=== PATIENT | male | born 1990 | race Caucasian/White ===

== ENCOUNTER 2025-04-04 12:58 | Emergency (ER) | payer OTHER, SELFPAY ==
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
[2025-04-04 12:58] VITALS: BP 136/80; PULSE 83; RESP 16; TEMP 36.4; O2SAT 100
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
--- OUTSIDE RECORDS SUMMARY | 2025-04-04 14:07 | XMS_ITS | Encounter Summary ---
Author Organization [facility] Address [address] [place] [address] Phone Care Team Providers Care Tobacco Warehouse Agent Name Role Phone Tom Clinton MD Primary Care Provider [phone] Reason for Visit * Reason Comments Medication Refill Encounter Details Date Type Department Care Team (Late st Contact Info) Description 11/27/2022 Refill [facility] - Family Medicine [facility] [address] [place] [address] Tom Clinton MD [address] [place] [address] Medication Refill Social History Tobacco Use Types Packs/Day Years Used Date Smoking Tobacco: Never Smokeless Tobacco: Current Alcohol Use Standard Drinks/Week Comments Not Currently 0 (1 standard drink = 0.6 oz pur e alcohol) PHQ-2 Answer Date Recorded PHQ-2 Score 0 07/15/2019 Education Answer Date Recorded What is the highest level of school you have completed or the highest degree you have received? Bachelor's degree (e.g., BA, AB, BS) 10/07/2020 Sexually Active Control Partners Comments Yes None Female Sex and Gender Information Value Date Recorded Sex Assigned at Not on file Legal Sex Male 11:18 PM CDT Gender Identity Not on file Sexual Orientation Not on file documented as of this encounter Miscellaneous Notes * Telephone Encounter - Alexa Wong RN - 11/27/2022 8:43 AM CDT Medication failed the protocol, provider to review and approve the medication order if appropriate.Last OV was 10/2021. Requested Prescriptions Pending Prescriptions Disp Refills olmesartan-hydrochlorothiazide (BENICAR HCT) 40-25 MG Tablet [Pharmacy Med Name: OLMESARTAN-HCTZ 40-25 MG TAB] 90 Tablet 0 Sig: TAKE 1 TABLET BY MOUTH EVERY DAY Not Delegated - Off Protocol Failed - 11/27/2022 2:53 AM Failed - This refill cannot be delegated Failed - Visit with relevant provider in past 12 months or upcoming 90 days Recent Visits No visits were found meeting these conditions. Showing recent visits within past 365 days and meeting all other requirements Future Appointments No visits were found meeting these conditions. 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
--- OUTSIDE RECORDS SUMMARY | 2025-04-04 14:07 | XMS_ITS | Encounter Summary ---
Author Organization [facility] Address [address] [place] [address] Phone Care Team Providers Care Histologist Name Role Phone Tom Clinton MD Primary Care Provider [phone] Reason for Visit * Reason Comments Medication Refill Encounter Details Date Type Department Care Team (Late st Contact Info) Description 10/21/2021 Refill [facility] - Family Medicine [facility] [address] [place] [address] Tom Clinton MD [address] [place] [address] Medication Refill Social History Tobacco Use Types [...] encounter Miscellaneous Notes * Telephone Encounter - Lucinda Gregory RN - 10/23/2021 7:37 AM CDT [employer] message read by patient: Last read by Alpesh ePrez at 7:05 AM on 10/23/2021. * Telephone Encounter - Katelyn Galicia CMA - 10/23/2021 6:56 AM CDT [employer] message was sent to patient. * Telephone Encounter - Lucinda Gregory RN - 10/22/2021 2:17 PM CDT Patient needs an appointment with PCP - last appt 10/13/20 * Telephone Encounter - Lucinda Gregory RN - 10/22/2021 2:17 PM CDT Medication failed the protocol, provider to review and approve the medication order if appropriate. Requested Prescriptions Pending Prescriptions Disp Refills amLODIPine (NORVASC) 5 MG Tablet [Pharmacy Med Name: AMLODIPINE BESYLATE 5 MG TAB] 30 Tablet 0 Sig: TAKE 1 TABLET BY MOUTH EVERY DAY Calcium-Channel Blockers Protocol Failed - 10/21/2021 11:32 AM Failed - BP on record in the past year Clinician-entered: BP Readings from Last 3 Encounters: 10/16/20 138/88 07/15/19 (!) 164/108 Patient-entered: No data recorded Failed - Visit with relevant provider in [...] documented as of this encounter Visit Diagnoses Not on filedocumented in this encounter Additional Health Concerns Assessment Noted Time PHQ-9 Depression Total Score: 0 07/15/19 12:00 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
--- OUTSIDE RECORDS SUMMARY | 2025-04-04 14:07 | XMS_ITS | Encounter Summary ---
Author Organization [facility] Address [address] [place] [address] Phone Care Team Providers Care Maintenance Shop Technician Name Role Phone Tom Clinton MD Primary Care Provider Reason for Visit * Reason Comments Medication Refill Encounter Details Date Type Department Care Team (Late st Contact Info) Description 08/29/2020 Refill [facility] - Family Medicine [facility] [address] [place] [address] Tom Clinton MD [address] [place] [address] Medication Refill Social History Tobacco Use Types Packs/Day Years Used Date Smoking Tobacco: Never Smokeless Tobacco: Current Alcohol Use Standard Drinks/Week Comments Not Currently 0 (1 standard drink = 0.6 oz pur e alcohol) PHQ-2 Answer Date Recorded PHQ-2 Score 0 07/15/2019 Sexually Active Control Partners Comments Yes None Female Sex and Gender Information Value Date Recorded Sex Assigned at Not on file Legal Sex Male 11:18 PM CDT Gender Identity Not on file Sexual Orientation Not on file documented as of this encounter Miscellaneous Notes * Telephone Encounter - Lucinda Gregory RN - 09/04/2020 8:11 AM CDT The original prescription was reordered on 09/01/2020 by Tom Clinton MD. * Telephone Encounter - Alexa Wong RN - 09/03/2020 3:03 PM CDT Duplicate * Telephone Encounter - Lucinda Gregory RN - 09/01/2020 9:16 AM CST duplicate CIATE DIRECTOR FINANCIAL AID * Telephone Encounter - Lucinda Gregory RN - 08/29/2020 3:38 PM CST [employer] message sent to patient requesting annual appointment. CIATE DIRECTOR FINANCIAL AID documented in this encounter Plan of Treatment Not on file documented as of this encounter Visit Diagnoses Not on filedocumented in this encounter Additional Health Concerns Assessment Noted Time PHQ-9 Depression Total Score: 0 07/15/19 20 12:00 PM ASSOCIATE DIRECTOR FINANCIAL AID documented as of this encounter Care Teams Maintenance Shop Technician Relationship Specialty Start Date End Date Tom Clinton MD PCP - General Family Medicine 07/15/19 12/14/24 documented as of this encounter
--- OUTSIDE RECORDS SUMMARY | 2025-04-04 14:07 | XMS_ITS | Encounter Summary ---
Author Organization [facility] Address [address] [place] [address] Phone Care Team Providers Care Lead Worker Of Housekeeping And Laundry Name Role Phone Tom Clinton MD Primary Care Provider [phone] Reason for Visit * Reason Comments Medication Refill Encounter Details Date Type Department Care Team (Late st Contact Info) Description 03/06/2023 Refill [facility] - Family Medicine [facility] [address] [place] [address] Tom Clinton MD [address] [place] [address] Medication Refill Social History Tobacco Use Types [...] Telephone Encounter - Lucinda Gregory RN - 03/06/2023 11:09 AM CDT Medication failed the protocol, provider to review and approve the medication order if appropriate. Requested Prescriptions Pending Prescriptions Disp Refills olmesartan-hydrochlorothiazide (BENICAR HCT) 40-25 MG Tablet [Pharmacy Med Name: OLMESARTAN-HCTZ 40-25 MG TAB] 30 Tablet 0 Sig: TAKE 1 TABLET BY MOUTH EVERY DAY Not Delegated - Off Protocol Failed - 03/06/2023 1:45 AM Failed - This refill cannot be [...] Total Score: 0 07/15/19 20 12:00 PM HEALTHCARE SALES REPRESENTATIVE documented as of this encounter Care Teams Lead Worker Of Housekeeping And Laundry Relationship Specialty Start Date End Date Tom Clinton MD PCP - General Family Medicine 07/15/19 12/14/24 documented as of this encounter
--- OUTSIDE RECORDS SUMMARY | 2025-04-04 14:07 | XMS_ITS | Encounter Summary ---
Author Organization [facility] Address [address] [place] [address] Phone Care Team Providers Care Bank Courier Name Role Phone Tom Clinton MD Primary Care Provider [phone] Reason for Visit * Reason Comments Medication Refill Encounter Details Date Type Department Care Team (Late st Contact Info) Description 12/19/2022 Refill [facility] - Family Medicine [facility] [address] [place] [address] Tom Clinton MD [address] [place] [address] Medication Refill Social History Tobacco Use Types [...] encounter Miscellaneous Notes * Telephone Encounter - Leatha Bhardwaj RMA - 12/23/2022 4:15 PM CDT Lvm to schedule * Telephone Encounter - Leatha Bhardwaj RMA - 12/20/2022 10:59 AM CDT No answer * Telephone Encounter - Leatha Bhardwaj RMA - 12/19/2022 2:48 PM CDT No answer * Telephone Encounter - Lucinda Gregory RN - 12/19/2022 1:50 PM CDT Needs OV with provider * Telephone Encounter - Lucinda Gregory RN - 12/19/2022 1:50 PM CDT Medication failed the protocol, provider to review and approve the medication order if appropriate. Requested Prescriptions Pending Prescriptions Disp Refills amLODIPine (NORVASC) 5 MG Tablet [Pharmacy Med Name: AMLODIPINE BESYLATE 5 MG TAB] 30 Tablet 0 Sig: TAKE 1 TABLET BY MOUTH EVERY DAY Calcium-Channel Blockers Protocol Failed - 12/19/2022 12:48 AM Failed - BP on record in the past year Clinician-entered: BP Readings from Last 3 Encounters: 11/06/21 146/88 10/16/20 138/88 07/15/19 (!) 164/108 Patient-entered: No [...] Total Score: 0 07/15/19 20 12:00 PM DIRECTOR PAYER documented as of this encounter Care Teams Bank Courier Relationship Specialty Start Date End Date Tom Clinton MD PCP - General Family Medicine 07/15/19 12/14/24 documented as of this encounter
--- OUTSIDE RECORDS SUMMARY | 2025-04-04 14:07 | XMS_ITS | Clinical Summary ---
Author Organization [facility] Physician Office [facility] [address] [place] [address] Care Team Providers Care Laboratory Equipment Cleaner Name Role Phone Darwin Jaramillo MD Primary Care Provider [phone] Allergies Active Allergy Reactions Criticality Noted Date Comments Hydrocodone Hives Medium 12/19/2023 Medications olmesartan-hydroc hlorothiazide (BENICAR HCT) 40-25 mg per tablet Take 1 tablet by mouth daily 90 tablet 1 12/19/2023 Active atorvastatin (LIPITOR) 20 mg tablet TAKE 1 TABLET BY MOUTH EVERY DAY 30 tablet 5 03/08/2024 Active amLODIPine (NORVASC) 5 mg tabletIndications :Benign hypertension TAKE 1 TABLET (5 MG TOTAL) BY MOUTH DAILY. 90 tablet 06/29/2024 Active Active Problems Problem Noted Date Diagnosed Date Need for hepatitis C screening test 12/19/2023 Benign hypertension 12/19/2023 Assessment & Plan (12/19/2023 5:25 PM CDT): 33-year-old gentleman who has had hypertension between 6 and 8 years blood pressure at goal today at 130/68 he is on multiple medications starting with Benicar 40/25 which is on olmesartan/hydrochlorothiazide 40/25 amlodipine 5 mg daily. Last lab October of 2021 showing a normal CMP and lipid profile. BMP and lipid profile on today's visit. Encounter for preventive health examination 11/22 Assessment & Plan (12/19/2023 5:22 PM CDT): 33-year-old gentleman who has a new patient to me. He has had hypertension somewhere between 6 and 8 years. Review of systems he is asymptomatic. Immunization was updated with a Tdap today. No lab for 2 years referring to FLP and BMP this has been requests on today's visit along with hepatitis-C antibody testing. Patient's BMI is 34.33 however does have a heavy work boots Immunizations Immunization Administration Dates Next Due DTaP 11/28/2009 Influenza, Quadrivalent, Spl it, Preservative Free, Intramuscular 07/15/2019 Influenza, Unspecified 03/24/2023(Deferred: Natasha ent Refused) Tdap 12/19/2023 Social History Tobacco Use Types Packs/Day Years Used Date Smoking Tobacco: Never Smokeless Tobacco: Current Chew Tobacco Cessation:Ready to Q uit: Not Asked PHQ-2 Answer Date Recorded PHQ-2 Total Score (If total score is 3 or more points, staff should administer the PHQ-9) 0 12/19/2023 Personal Safety Answer Date Recorded Getting School Help Needed Not on file 09/04 Sex and Gender Information Value Date Recorded Sex Assigned at Not on file Legal 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 Gender Identity Not on file Sexual Orientation Not on file Obstetrics History Last Filed Vital Signs Vital Sign Reading Time Taken Comments Blood Pressure 130/68 12/19/2023 2:01 PM CDT Pulse 89 12/19/2023 2:01 PM CDT Temperature 36.6 C (97.8 F) 12/19/2023 2:01 PM CDT Respiratory Rate 16 12/19/2023 2:01 PM CDT Oxygen Saturation 98% 12/19/2023 2:01 PM CDT Inhaled Oxygen Concentration - - Weight 102.4 kg (225 lb 12.8 oz) 12/19/2023 2:01 PM CDT Height 172.7 cm (5' 8) 12/19/2023 2:01 PM CDT Body Mass Index 34.33 12/19/2023 2:01 PM CDT Plan of Treatment Health Maintenance Due Date Last Done Comments Varicella Vaccines (1 of 2 - 13+ 2-dose series) 2002 Hepatitis B Screening 2007 HPV Vaccines (1 - 3-dose SCD M series) 2016 Depression Screening 12/18/2024 12/19/2023 Regular Well Visit/Exam 18-64 12/18/2024 12/19/2023 Covid-19 Vaccine (3 - 2024-2 6 season) 2025 08/08/2020, 07/10/2020 Influenza Vaccine (#1) 2025 07/15/2019 DTaP/Tdap/Td Vaccine (3 - Td or Tdap) 12/18/2033 12/19/2023, 11/28/2009 Hepatitis C Screening Completed 12/19/2023 Pneumococcal vaccine <65 Aged Out No longer eligible based on patient's age to complete this topic Procedures Procedure Name Priority Date/Time Associated Diagnosis Comments HEPATITIS C ANTIBODY Routine 12/19/2023 2:41 PM CDT Need for hepatitis C screening test from Last 3 Months or Most Recently Relevant to Health Maintenance Results * Hepatitis C antibody Blood (12/19/2023 2:41 PM CDT) Hep C Ab Nonreactive Nonreactive Comment: Interpretive Data Nonreactive: Antibodies to HCV not detected. Does NOT exclude the possibility of recent exposure to HCV. Equivocal: Equivocal for HCV antibodies. Supplemental molecular testing will be automatically performed to determine infection status in accordance with current CDC screening recommendations. Reactive: Positive for HCV antibodies. This may represent current or past HCV infection. Supplemental molecular testing will be automatically performed to determine current infection status in accordance with current CDC screening recommendations. Interpretive data was last revised on 2019. Testing performed by: [facility], [address] [place] [address]., [id number] Blood 12/19/2023 2:41 PM CDT 12/19/2023 6:27 PM CDT Darwin Jaramillo MD LAB MICROBIOLOGY - GENERAL ORDERABLES Final Result [facility] [id number] [facility] Department of Laboratories [place] [phone] from Last 3 Months or Most Recently Relevant to Health Maintenance Insurance R [facility] Care Teams Laboratory Equipment Cleaner Relationship Specialty Start Date End Date Darwin Jaramillo MD [address] [place] [address] PCP - General Internal Medicine 12/19/23
--- OUTSIDE RECORDS SUMMARY | 2025-04-04 14:07 | XMS_ITS | Encounter Summary ---
Author Organization [facility] Address [address] [place] [address] Phone Care Team Providers Care High Lift Mule Operator Name Role Phone Tom Clinton MD Primary Care Provider [phone] Reason for Visit * Reason Comments Medication Refill Encounter Details Date Type Department Care Team (Late st Contact Info) Description 09/15/2023 Refill [facility] - Family Medicine [facility] [address] [place] [address] Tom Clinton MD [address] [place] [address] Medication Refill Social History Tobacco Use Types [...] Telephone Encounter - Lucinda Gregory RN - 09/15/2023 11:10 AM CDT Medication failed the protocol, provider to review and approve the medication order if appropriate. Requested Prescriptions Pending Prescriptions Disp Refills olmesartan-hydrochlorothiazide (BENICAR HCT) 40-25 MG Tablet [Pharmacy Med Name: OLMESARTAN-HCTZ 40-25 MG TAB] 90 Tablet 1 Sig: TAKE 1 TABLET BY MOUTH EVERY DAY Not Delegated - Off Protocol Failed - 09/15/2023 1:12 AM Failed - This refill cannot be delegated Passed - Visit with relevant provider in past 12 months or upcoming 90 days Recent Visits Date Type Provider Dept 03/20/23 Office Visit Tom Clinton MD [facility] Showing recent visits within past 365 days [...] Total Score: 0 07/15/19 20 12:00 PM MANAGER MARKET INTELLIGENCE documented as of this encounter Care Teams High Lift Mule Operator Relationship Specialty Start Date End Date Tom Clinton MD PCP - General Family Medicine 07/15/19 12/14/24 documented as of this encounter
--- OUTSIDE RECORDS SUMMARY | 2025-04-04 14:07 | XMS_ITS | Encounter Summary ---
Author Organization [facility] Address [address] [place] [address] Phone Care Team Providers Care Biofuels Production Associate Name Role Phone Tom lCinton MD Primary Care Provider [phone] Reason for Visit * Reason Comments Medication Refill Encounter Details Date Type Department Care Team (Late st Contact Info) Description 08/19/2022 Refill [facility] - Family Medicine [facility] [address] [place] [address] Tom Clinton MD [address] [place] [address] Medication Refill Social History Tobacco Use Types [...] encounter Miscellaneous Notes * Telephone Encounter - Leela Webster RN - 08/19/2022 12:03 PM ADVERTISING SALES EXECUTIVE Medication failed the protocol, provider to review and approve the medication order if appropriate. Requested Prescriptions Pending Prescriptions Disp Refills olmesartan-hydrochlorothiazide (BENICAR HCT) 40-25 MG Tablet [Pharmacy Med Name: OLMESARTAN-HCTZ 40-25 MG TAB] 90 Tablet Sig: TAKE 1 TABLET BY MOUTH EVERY DAY Not Delegated - Off Protocol Failed - 08/19/2022 12:44 AM Failed - This refill cannot be delegated Passed - Visit with relevant provider in past 12 months or upcoming 90 days Recent Visits Date Type Provider Dept 11/06/21 Office Visit Tom Clinton MD [facility] Showing recent visits within past 365 days and meeting all other requirements Future Appointments No visits were found meeting these conditions. Showing future appointments within next 90 days and meeting all other requirements RTISING SALES EXECUTIVE documented in this encounter Plan of Treatment Not on file documented as of this encounter Visit Diagnoses Diagnosis Essential hypertension Unspecified essential hypertension documented in this encounter Additional Health Concerns Assessment Noted Time PHQ-9 Depression Total Score: 0 07/15/19 12:00 PM ADVERTISING SALES EXECUTIVE documented as of this encounter Care Teams Biofuels Production Associate Relationship Specialty Start Date End Date Tom Clinton MD PCP - General Family Medicine 07/15/19 12/14/24 documented as of this encounter
--- OUTSIDE RECORDS SUMMARY | 2025-04-04 14:07 | XMS_ITS | Encounter Summary ---
Author Organization [facility] Address [address] [place] [address] Phone Care Team Providers Care Product Marketing Director Name Role Phone Tom Clinton MD Primary Care Provider [phone] Reason for Visit * Reason Comments Medication Refill Encounter Details Date Type Department Care Team (Late st Contact Info) Description 06/20/2023 Refill [facility] Medical [facility] - Family Medicine [facility] [address] [place] [address] Tom Clinton MD [address] [place] [address] Medication Refill Social History Tobacco Use Types [...] encounter Miscellaneous Notes * Telephone Encounter - Rosa Ontiveros RN - 06/20/2023 10:00 AM ROOFER HELPER VINYL COATING Medication failed the protocol, provider to review and approve the medication order if appropriate. Requested Prescriptions Pending Prescriptions Disp Refills olmesartan-hydrochlorothiazide (BENICAR HCT) 40-25 MG Tablet [Pharmacy Med Name: OLMESARTAN-HCTZ 40-25 MG TAB] 90 Tablet 0 Sig: TAKE 1 TABLET BY MOUTH EVERY DAY Not Delegated - Off Protocol Failed - 06/20/2023 12:48 AM Failed - This refill cannot be delegated Passed - Visit with relevant provider in past 12 months or upcoming 90 days Recent Visits Date Type Provider Dept 03/20/23 Office Visit Tom Clinton MD [facility] Showing recent visits within past 365 days and meeting all other requirements Future Appointments No visits were found meeting these conditions. Showing future appointments within next 90 days and meeting all other requirements ER HELPER VINYL COATING documented in this encounter Plan of Treatment Not on file documented as of this encounter Visit Diagnoses Diagnosis Essential hypertension Unspecified essential hypertension documented in this encounter Additional Health Concerns Assessment Noted Time PHQ-9 Depression Total Score: 0 07/15/19 20 12:00 PM ROOFER HELPER VINYL COATING documented as of this encounter Care Teams Product Marketing Director Relationship Specialty Start Date End Date Tom Clinton MD PCP - General Family Medicine 07/15/19 12/14/24 documented as of this encounter
--- OUTSIDE RECORDS SUMMARY | 2025-04-04 14:07 | XMS_ITS | Clinical Summary ---
Author Organization [facility] Address [address] [address] Phone Care Team Providers Care High Density Finishing Operator Name Role Phone Unavailable Primary Care Provider Unavailabl e Allergies Active Allergy Reactions Criticality Noted Date Comments Hydrocodone Hives Medium 12/19/2023 Medications albuterol 108 (90 Base) MCG/ACT Aerosol Solution take 2 Puffs by inhalation every 4 hours as needed for Wheezing. 8.5 g 0 Active amLODIPine (NORVASC) 5 MG TabletIndications :Essential hypertension TAKE 1 TABLET BY MOUTH EVERY DAY 90 Tablet 3 3 Active olmesartan-hydroc hlorothiazide (BENICAR HCT) 40-25 MG TabletIndications :Essential hypertension TAKE 1 TABLET BY MOUTH EVERY DAY 90 Tablet 1 4 Active Active Problems Problem Noted Date Diagnosed Date High blood pressure 07/15/2019 Immunizations Immunization Administration Dates Next Due Covid-19, Mrna, Lnp-s, PF, 1 00 mcg/0.5 mL Dose (Moderna) 08/08/2020,07/10/2020 DTAP VACCINE 11/28/2009 Influenza Vaccine, Quadrivalent, PF 07/15/2019 Social History Tobacco Use Types Packs/Day Years Used Date Smoking Tobacco: Never Smokeless Tobacco: Current Tobacco Cessation:Ready to Q uit: Not Asked; Counseling Given: Not Answered Alcohol Use Standard Drinks/Week Comments Not Currently [...] on file Sexual Orientation Not on file Last Filed Vital Signs Vital Sign Reading Time Taken Comments Blood Pressure 118/56 04/18/2024 4:04 PM CDT Pulse 98 04/18/2024 4:04 PM CDT Temperature 36.6 C (97.9 F) 04/18/2024 4:04 PM CDT Respiratory Rate 20 04/18/2024 4:04 PM CDT Oxygen Saturation 96% 04/18/2024 4:04 PM CDT Inhaled Oxygen Concentration - - Weight 110.7 kg (244 lb) 03/20/2023 8:30 AM CDT Height 172.7 cm (5' 8) 03/20/2023 8:30 AM CDT Body Mass Index 37.1 03/20/2023 8:30 AM CDT Plan of Treatment Health Maintenance Due Date Last Done Comments Hepatitis C Virus (HCV) Screening 1989 Human Papillomavirus (HPV) Immunization (1 - 3-dose SCDM series) 2016 Influenza Immunization (#1) 2025 07/15/2019 Respiratory Syncytial Virus (RSV) Immunization (Adult) (1 - 1-dose 75+ series) 2064 SARS-COV-2 Immunization Discontinued 08/08/19 21, 07/10/2020 DTaP/Tdap/Td Immunization Discontinued 2023, 11/28/2009 Hepatitis B Immunization Discontinued Meningococcal Immunization (ACWY) Aged Out No longer eligible based on patient's age to complete this topic Pneumococcal Immunization Combined Aged Out No longer eligible based on patient's age to complete this topic Rotavirus Immunization Aged Out No lo nger eligible based on patient's age to complete this topic Insurance [facility] [place] [address]
--- OUTSIDE RECORDS SUMMARY | 2025-04-04 14:45 | XMS_ITS | Encounter Summary ---
Author Organization [facility] Address [address] [place] [address] Phone Care Team Providers Care Textbook Associate Name Role Phone Tom Clinton MD Primary Care Provider [phone] Reason for Visit * Reason Comments Medication Refill Encounter Details Date Type Department Care Team (Late st Contact Info) Description 08/19/2022 Refill [facility] - Family Medicine [facility] [address] [place] [address] Tom Clinton MD [address] [place] [address] Medication Refill Social History Tobacco Use Types [...] Leela Webster RN - 08/19/2022 12:03 PM OFFICE CASHIER Medication failed the protocol, provider to review [...] Dept 11/06/21 Office Visit Tom Clinton MD [facility] Showing recent visits within past 365 days and meeting all other requirements Future Appointments No visits were found meeting these conditions. Showing future appointments within next 90 days and meeting all other requirements CE CASHIER documented in this encounter Plan of Treatment Not on file documented as of this encounter Visit Diagnoses Diagnosis Essential hypertension Unspecified essential hypertension documented in this encounter Additional Health Concerns Assessment Noted Time PHQ-9 Depression Total Score: 0 07/15/19 12:00 PM OFFICE CASHIER documented as of this encounter Care Teams Textbook Associate Relationship Specialty Start Date End Date Tom Clinton MD PCP - General Family Medicine 07/15/19 12/14/24 documented as of this encounter
--- OUTSIDE RECORDS SUMMARY | 2025-04-04 14:45 | XMS_ITS | Clinical Summary ---
Author Organization [facility] Address [address] [address] Phone Care Team Providers Care Commissioner Of Relocation Services Name Role Phone Unavailable Primary Care Provider [...] patient's age to complete this topic Insurance [facility] Member Subscriber Plan / Payer (Ef fective 2022-Present) Name:Alpesh Perez Relation to Subscriber:Self Name:Alpesh Perez Payer ID:[id number] (NAIC) Type:Not on file Address: [facility] [address] [address] [place] [address]
--- OUTSIDE RECORDS SUMMARY | 2025-04-04 14:45 | XMS_ITS | Clinical Summary ---
Author Organization [facility] Physician Office Building [address] [place] [address] Care Team Providers Care Segment Assembler Name Role Phone Darwin Jaramillo MD Primary Care Provider [phone] Allergies Active Allergy Reactions Criticality Noted Date [...] on file Legal Sex Male 10:28 PM FORKLIFT DRIVER Gender Identity Not on file Sexual Orientation [...] last revised on 2019. Testing performed by: [facility], [address] [place] [address]., [id number] Blood 12/19/2023 2:41 PM CDT 12/19/2023 6:27 PM CDT Darwin Jaramillo MD LAB MICROBIOLOGY - GENERAL ORDERABLES Final Result LUBA [id number] [facility] Department of Laboratories [place] [id number] from Last 3 Months or Most Recently Relevant to Health Maintenance Insurance R [facility] Care Teams Segment Assembler Relationship Specialty Start Date End Date Darwin Jaramillo MD [address] [place] [address] PCP - General Internal Medicine 12/19/23
--- OUTSIDE RECORDS SUMMARY | 2025-04-04 14:45 | XMS_ITS | Encounter Summary ---
Author Organization [facility] Address [address] [place] [address] Phone Care Team Providers Care Rv Service Technician Name Role Phone Tom Clinton MD Primary Care Provider [phone] Reason for Visit * Reason Comments Medication Refill Encounter Details Date Type Department Care Team (Late st Contact Info) Description 12/19/2022 Refill [facility] Medical Group - Family Medicine [facility] [address] [place] [address] Tom Clinton MD [address] [place] [address] Medication Refill Social History Tobacco Use Types [...] Total Score: 0 07/15/19 20 12:00 PM PSYCHOMETRICIAN documented as of this encounter Care Teams Rv Service Technician Relationship Specialty Start Date End Date Tom Clinton MD PCP - General Family Medicine 07/15/19 12/14/24 documented as of this encounter
--- OUTSIDE RECORDS SUMMARY | 2025-04-04 14:45 | XMS_ITS | Encounter Summary ---
Author Organization [facility] Address [address] [place] [address] Phone Care Team Providers Care Pulpwood Dealer Name Role Phone Tom Clinton MD Primary Care Provider [phone] Reason for Visit * Reason Comments Medication Refill Encounter Details Date Type Department Care Team (Late st Contact Info) Description 10/21/2021 Refill [facility] - Family Medicine [facility] [address] [place] [address] Tom Clinton MD [address] [place] [address] Medication Refill Social History Tobacco Use Types [...] Gregory RN - 10/23/2021 7:37 AM CDT [employer] message read by patient: Last read by Alpesh Perez at 7:05 AM on 10/23/2021. * Telephone Encounter - Katelyn Galicia CMA - 10/23/2021 6:56 AM CDT [employer] message was sent to patient. * Telephone [...] Depression Total Score: 0 07/15/19 12:00 PM GRADER GREEN MEAT documented as of this encounter Care Teams Pulpwood Dealer Relationship Specialty Start Date End Date Tom Clinton MD PCP - General Family Medicine 07/15/19 12/14/24 documented as of this encounter
--- OUTSIDE RECORDS SUMMARY | 2025-04-04 14:45 | XMS_ITS | Encounter Summary ---
Author Organization [facility] Address [address] [place] [address] Phone Care Team Providers Care Eyelet Riveter Name Role Phone Tom Clinton MD Primary Care Provider [phone] Reason for Visit * Reason Comments Medication Refill Encounter Details Date Type Department Care Team (Late st Contact Info) Description 08/29/2020 Refill [facility] - Family Medicine [facility] [address] [place] [address] Tom Clinton MD [address] [place] [address] Medication Refill Social History Tobacco Use Types [...] RN - 09/01/2020 9:16 AM CST duplicate ICAL PRODUCTION TECHNICIAN * Telephone Encounter - Lucinda Gregory RN - 08/29/2020 3:38 PM CST [employer] message sent to patient requesting annual appointment. ICAL PRODUCTION TECHNICIAN documented in this encounter Plan of Treatment Not on file documented as of this encounter Visit Diagnoses Not on filedocumented in this encounter Additional Health Concerns Assessment Noted Time PHQ-9 Depression Total Score: 0 07/15/19 20 12:00 PM CHEMICAL PRODUCTION TECHNICIAN documented as of this encounter Care Teams Eyelet Riveter Relationship Specialty Start Date End Date Tom Clinton MD PCP - General Family Medicine 07/15/19 12/14/24 documented as of this encounter
--- OUTSIDE RECORDS SUMMARY | 2025-04-04 14:45 | XMS_ITS | Encounter Summary ---
Author Organization [facility] Address [address] [place] [address] Phone Care Team Providers Care Food And Beverage Assistant Name Role Phone Tom Clinton MD Primary Care Provider [phone] Reason for Visit * Reason Comments Medication Refill Encounter Details Date Type Department Care Team (Late st Contact Info) Description 06/20/2023 Refill [facility] Medical Group - Family Medicine [facility] [address] [place] [address] Tom Clinton MD [address] [place] [address] Medication Refill Social History Tobacco Use Types [...] Rosa Ontiveros RN - 06/20/2023 10:00 AM FIELD HOCKEY AND LACROSSE COACH Medication failed the protocol, provider to review [...] Dept 03/20/23 Office Visit Tom Clinton MD [facility] Showing recent visits within past 365 days and meeting all other requirements Future Appointments No visits were found meeting these conditions. Showing future appointments within next 90 days and meeting all other requirements D HOCKEY AND LACROSSE COACH documented in this encounter Plan of Treatment Not on file documented as of this encounter Visit Diagnoses Diagnosis Essential hypertension Unspecified essential hypertension documented in this encounter Additional Health Concerns Assessment Noted Time PHQ-9 Depression Total Score: 0 07/15/19 20 12:00 PM FIELD HOCKEY AND LACROSSE COACH documented as of this encounter Care Teams Food And Beverage Assistant Relationship Specialty Start Date End Date Tom Clinton MD PCP - General Family Medicine 07/15/19 12/14/24 documented as of this encounter
--- OUTSIDE RECORDS SUMMARY | 2025-04-04 14:45 | XMS_ITS | Encounter Summary ---
Author Organization [facility] Address [address] [place] [address] Phone Care Team Providers Care Developmental Electronics Assembler Name Role Phone Tom Clinton MD Primary Care Provider Reason for Visit * Reason Comments Medication Refill Encounter Details Date Type Department Care Team (Late st Contact Info) Description 11/27/2022 Refill [facility] - Family Medicine [facility] [address] [place] [address] Tom Clinton MD [address] [place] [address] Medication Refill Social History Tobacco Use Types [...] Total Score: 0 07/15/19 20 12:00 PM SALESPERSON CHILDREN[employer] SHOES documented as of this encounter Care Teams Developmental Electronics Assembler Relationship Specialty Start Date End Date Tom Clinton MD PCP - General Family Medicine 07/15/19 12/14/24 documented as of this encounter
--- OUTSIDE RECORDS SUMMARY | 2025-04-04 14:45 | XMS_ITS | Encounter Summary ---
Author Organization [facility] Address [address] [place] [address] Phone Care Team Providers Care Emergency Preparedness Coordinator Name Role Phone Tom Clinton MD Primary Care Provider [phone] Reason for Visit * Reason Comments Medication Refill Encounter Details Date Type Department Care Team (Late st Contact Info) Description 03/06/2023 Refill [facility] Medical [facility] - Family Medicine [facility] [address] [place] [address] Tom Clinton MD [address] [place] [address] Medication Refill Social History Tobacco Use Types [...] Total Score: 0 07/15/19 20 12:00 PM NATURAL RESOURCES SPECIALIST documented as of this encounter Care Teams Emergency Preparedness Coordinator Relationship Specialty Start Date End Date Tom Clinton MD PCP - General Family Medicine 07/15/19 12/14/24 documented as of this encounter
--- OUTSIDE RECORDS SUMMARY | 2025-04-04 14:45 | XMS_ITS | Encounter Summary ---
Author Organization [facility] Address [address] [place] [address] Phone Care Team Providers Care Social Welfare Research Worker Name Role Phone Tom Clinton MD Primary Care Provider [phone] Reason for Visit * Reason Comments Medication Refill Encounter Details Date Type Department Care Team (Late st Contact Info) Description 09/15/2023 Refill [facility] Medical [facility] - Family Medicine [facility] [address] [place] [address] Tom Clinton MD [address] [place] [address] Medication Refill Social History Tobacco Use Types [...] Dept 03/20/23 Office Visit Tom Clinton MD [facility] Showing recent visits within past 365 days [...] Total Score: 0 07/15/19 20 12:00 PM FLOOR SCRUBBER documented as of this encounter Care Teams Social Welfare Research Worker Relationship Specialty Start Date End Date Tom Clinton MD PCP - General Family Medicine 07/15/19 12/14/24 documented as of this encounter
[2025-04-04 14:59] VITALS: BP 138/84; PULSE 82; RESP 16; TEMP 36.5; O2SAT 99
== END 2025-04-04 15:01 | disposition home or self-care (01) ==
PROVIDERS: Emergency Provider Emergency Medicine; PCP Internal Medicine
DX: S06.0X0A Concussion without loss of consciousness, initial encounter (principal); S80.12XA Contusion of left lower leg, initial encounter; S43.102A Unspecified dislocation of left acromioclavicular joint, initial encounter; V43.62XA Car passenger injured in collision with other type car in traffic accident, initial encounter
CPT/HCPCS: 70450; 72125; 73030; 73590; 99284

== ENCOUNTER 2025-06-04 09:17 | Outpatient (CLI) | payer OTHER, SELFPAY ==
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
== END 2025-06-04 09:18 | disposition home or self-care (01) ==
LOC: CHSIMG 09:19
PROVIDERS: Visit Provider Orthopaedic Surgery
DX: S49.92XA Unspecified injury of left shoulder and upper arm, initial encounter (principal); R53.1 Weakness; M75.102 Unspecified rotator cuff tear or rupture of left shoulder, not specified as traumatic; M75.52 Bursitis of left shoulder; M19.012 Primary osteoarthritis, left shoulder
CPT/HCPCS: 73221